=== PATIENT | male | born 1960 | race Caucasian/White ===

== ENCOUNTER 2021-05-06 17:10 | Inpatient (IN) | payer SELFPAY ==
[~2021-05-06] VITALS: Ht 175.3 cm; Wt 100.2 kg
--- NOTE | 2021-05-06 17:29 | PHYS DOC ---
General Adult EDM: Chief Complaint: BACK PAIN OR INJURY HPI: HPI: Patient is a 61-year-old male who presents to the emergency department today for altered mental status. EMS states that patient has been speaking in tongues and not answering questions appropriately, they report that patient at 1 point dur ing transport was able to tell him that his back hurt. Patient arrives he is yelling in on gibberish and he words are not comprehensible.Patient had a moment when he stated "bermudian" "pain" when asked where his pain was he stated "back". He is following commands and moving all four extermities but due to patients speech, unable to obtain an HPI. 1834: Patients significant other is at patient's bedside, she states that he behaves this way when he has muscle spasms. She also informed me that he has increased lower extremity swelling and he has liver disease but she is a poor historian. She says that patient recently had an appointment with his liver doctor. When I asked her about patient's necrotic toe she states that he does not see wound care for any of his wounds Review of Systems: Review of Systems: See HPI Heart Score: C/O Chest Pain: N/A Risk Factors: Risk Factors: DM, Current or recent (<one month) smoker, HTN, HLP, family history of CAD, obesity. Risk Scores: Score 0 - 3: 2.5% MACE over next 6 weeks - Discharge Home Score 4 - 6: 20.3% MACE over next 6 weeks - Admit for Clinical Observation Score 7 - 10: 72.7% MACE over next 6 weeks - Early Invasive Strategies Physical Exam: PE: Constitutional: Well developed, well nourished, no acute distress, non-toxic appearance. [] HENT: Normocephalic, atraumatic, bilateral external ears normal, oropharynx moist, no oral exudates, nose normal. [] Eyes: PERRL, 4 mm pupils bilaterally, EOMI, conjunctiva normal, no discharge. [] Neck: Normal range of motion, no bony spinal tenderness, supple, no stridor. [] Cardiovascular:Heart rate regular rhythm, no murmur [] Lungs & Thorax: Bilateral breath sounds clear to auscultation [] Abdomen: Bowel sounds normal, soft, no tenderness, no masses, no pulsatile masses. [] Skin: Warm, dry, no erythema, no rash [] Back: Lumbar paraspinal tenderness, decreased range of motion due to pain Extremities: No tenderness, no cyanosis, no clubbing, ROM intact, plus pitting edema noted to right lower extremity, 2+ edema noted to left lower extremity, redness noted to left foot starting foot and extending to toes, patient has scabbing noted to bilateral lower extremities, necrotic left second toe. Neurologic: Alert and oriented X 3, normal motor function, normal sensory function, no focal deficits noted, patient is moving all 4 extremities equally, no facial droop, patient has garbled speech and is acting like he is talking and tongue although he occasionally will respond appropriately to questions. [] Psychologic: Affect normal, judgement normal, mood normal. [] Current Patient Data: Labs: Laboratory Tests Test 05/06/21 17:25 05/06/21 18:00 White Blood Count 7.8 x10^3/uL Red Blood Count 4.53 x10^6/uL Hemoglobin 12.7 g/dL Hematocrit 37.6 % Mean Corpuscular Volume 83 fL Mean Corpuscular Hemoglobin 28 pg Mean Corpuscular Hemoglobin Concent 34 g/dL Red Cell Distribution Width 16.3 % Platelet Count 136 x10^3/uL Neutrophils (%) (Auto) 65 % Lymphocytes (%) (Auto) 22 % Monocytes (%) (Auto) 9 % Eosinophils (%) (Auto) 4 % Basophils (%) (Auto) 1 % Neutrophils # (Auto) 5.1 x10^3/uL Lymphocytes # (Auto) 1.7 x10^3/uL Monocytes # (Auto) 0.7 x10^3/uL Eosinophils # (Auto) 0.3 x10^3/uL Basophils # (Auto) 0.0 x10^3/uL Sodium Level 134 mmol/L Potassium Level 3.7 mmol/L Chloride Level 96 mmol/L Carbon Dioxide Level 29 mmol/L Anion Gap 9 Blood Urea Nitrogen 6 mg/dL Creatinine 1.0 mg/dL Estimated GFR (Cockcroft-Gault) 76.0 BUN/Creatinine Ratio 6 Glucose Level 77 mg/dL Lactic Acid Level 1.9 mmol/L Calcium Level 8.5 mg/dL Total Bilirubin 0.7 mg/dL Aspartate Amino Transf (AST/SGOT) 21 U/L Alanine Aminotransferase (ALT/SGPT) 21 U/L Alkaline Phosphatase 179 U/L Troponin I High Sensitivity 8 ng/L Total Protein 7.7 g/dL Albumin 3.3 g/dL Albumin/Globulin Ratio 0.8 Ethyl Alcohol Level < 10 mg/dL Ammonia 46 mcmol/L Current Medications Medications (Trade) Dose Ordered Sig/Nayla Route PRN Reason Start Time Stop Time Status Last Admin Dose Admin Ketorolac Tromethamine (Toradol 30mg Vial) 30 mg 1X ONCE IVP 05/06/21 18:00 05/06/21 18:01 DC 05/06/21 18:39 Orphenadrine Citrate (Norflex) 60 mg 1X ONCE IM 05/06/21 18:00 05/06/21 18:01 DC 05/06/21 18:39 EKG: EKG: [] EKG performed by ER staff at 1740 shows sinus rhythm rate of 94, QTC of 438, no STEMI read by Dr. Simpson at 1745 Radiology/Procedures: Radiology/Procedures: []REASON: back pain PROCEDURE: CT LUMBAR SPINE WO CONTRAST Exam: CT of lumbar spine without contrast INDICATION: Back pain TECHNIQUE: Sequential axial images through the lumbar spine obtained without IV contrast. Sagittal and coronal reformatted images were reconstructed from the axial data and reviewed. Exposure: One or more of the following in the visualized dose reduction techniques were utilized for this examination: 1. Automated exposure control 2. Adjustment of the MA and/or KV according to patient size 3. Use of iterative of reconstructive technique Comparisons: None FINDINGS: Mild compression fracture involving superior endplate of L4. Displaced fracture to the lumbar spine is not identified. Degenerative disc disease greatest at L1-L2. Mild bilateral facet arthropathy is also noted in the lumbar spine. Visualized paraspinal soft tissues are unremarkable. IMPRESSION: 1. Compression fracture of the superior endplate of L4. 2. Mild spondylotic change in the lumbar spine as described above. Electronically signed by: Cliff Dior MD (05/06/2021 7:18 PM) [facility] DICTATED and SIGNED BY: CLIFF DIOR MD DATE: 05/06/21 [id number] 0 PROCEDURE: CT HEAD AND CERVICAL SPINE WO Exam: CT head and cervical spine without contrast INDICATION: Altered mental status, back TECHNIQUE: Sequential axial images through the head were obtained without the administration of IV contrast. Exposure: One or more of the following in the visualized dose reduction techniques were utilized for this examination: 1. Automated exposure control 2. Adjustment of the MA and/or KV according to patient size 3. Use of iterative of reconstructive technique Comparisons: None FINDINGS: Head: No focal parenchymal lesion or hemorrhage is identified. There is no midline shift or sulcal effacement. No acute vascular territory infarction is identified. Solomon-white distinction is preserved. The ventricular system is within normal limits without compression hydrocephalus. The basal cisterns are well maintained. The visualized portions of the paranasal sinuses and mastoid air cells are well- pneumatized. No acute fractures. Cervical spine: Straightening of the cervical spine which may positional. Fracture to the cervical spine is not identified. Mild multilevel spondylotic change in cervical spine with degenerative disease greatest at C3-C4, C4-C5 and C5-C6. Visualized paraspinal soft tissues are unremarkable. IMPRESSION: 1. No acute intracranial abnormality. 2. Negative CT C-spine for acute traumatic injury. Electronically signed by: Cliff Dior MD (05/06/2021 7:14 PM) [facility] DICTATED and SIGNED BY: CLIFF DIOR MD DATE: 05/06/21 [id number] 0 Course & Med Decision Making: Course & Med Decision Making Pertinent Labs and Imaging studies reviewed. (See chart for details) [] Patient presents to the emergency department for altered mental status and major difficulties. Work-up in the ER consisted of blood work, CT imaging of head and neck and lumbar spine, chest x-ray, urinalysis. Patient CBC is u nremarkable. He is noted to have an ammonia of 46. Negative troponin, negative lactic acidosis. Patient ALT and AST is 21, he does have a history of liver disease but his speech is not well understood and his significant other in the room is a poor historian. CT scan of head and neck are unremarkable. CT scan of lumbar spine shows a compression fracture of L4. I spoke to Dr. Pak's nurse practitioner Cyndi and she agreed that she could see this patient at patient but would be willing to see him inpatient he gets admitted for other reasons. A consult was placed for wound care as patient does have a necrotic left second toe. Urine drug screen and urinalysis is pending at this time. I discussed patient's case with Dr. Porras and he agreed to admit the patient under his services. I discussed patient's findings with him and his significant other as well as treatment plan and they are agreeable at this time. Bridge orders placed as well as as needed pain medication. 2013. Thomas Disclaimer: Thomas Disclaimer: This electronic medical record was generated, in whole or in part, using a voice recognition dictation system. Departure Departure Impression: Primary Impression: Intractable back pain Additional Impression: Hyperammonemia Disposition: ADMITTED INPATIENT Admitting Physician: ISMAEL Condition: STABLE MAYRA ALLEN [employer] May 06, 2021 17:29
[2021-05-06 17:50] LABS: BASO % 1 % (0-3); EOS # 0.3 x10^3/uL (0.0-0.7); EOS % 4 % (0-3); HEMATOCRIT 37.6 % (39.0-53.0); HEMOGLOBIN 12.7 g/dL (13.0-17.5); LYMPH # 1.7 x10^3/uL (1.0-4.8); LYMPH % 22 % (24-48); MEAN CORPUSCULAR HEMOGLOBIN 28 pg (25-35); MEAN CORPUSCULAR HGB CONC 34 g/dL (31-37); MEAN CORPUSCULAR VOLUME 83 fL (79-100); MONO # 0.7 x10^3/uL (0.0-1.1); MONO % 9 % (0-9); NEUT # 5.1 x10^3/uL (1.8-7.7); NEUT % 65 % (31-73); PLATELET COUNT 136 x10^3/uL (140-400); RED BLOOD COUNT 4.53 x10^6/uL (4.30-5.70); RED CELL DISTRIBUTION WIDTH 16.3 % (11.5-14.5); WHITE BLOOD COUNT 7.8 x10^3/uL (4.0-11.0)
[2021-05-06 17:56] LABS: CALCIUM 8.5 mg/dL (8.5-10.1); POTASSIUM 3.7 mmol/L (3.5-5.1)
[2021-05-06] MEDS ORDERED: KETOROLAC 30 MG/ML VIAL. IVP ONE (18:00)
[2021-05-06] MEDS ORDERED: ORPHENADRINE CITRATE 60 MG/2 ML VIAL. IM ONE (18:00)
[2021-05-06 18:10] LABS: ALBUMIN 3.3 g/dL (3.4-5.0); ALBUMIN/GLOBULIN RATIO 0.8 (1.0-1.7); TOTAL BILIRUBIN 0.7 mg/dL (0.2-1.0); TOTAL PROTEIN 7.7 g/dL (6.4-8.2)
--- NOTE | 2021-05-06 18:11 | EKG ---
[facility] [address] [place] [address] Test Date: 2021-05-06 Test Time: 17:40:27 Pat Name: ROBYN PEREYRA Department: Room: Gender: M Rn Procedures: : 1960 Requested By: MAYRA ALLEN Order Number: [id number] Reading MD: Rodney Hogluin MD Measurements Intervals [place] Rate: 94 P: 51 IA: 160 QRS: 16 QRSD: 78 T: 28 QT: 346 QTc: 438 Interpretive Statements SINUS RHYTHM NON-SPECIFIC ST/T CHANGES Electronically Signed On 05-07-2021 13:24:57 [employer]AMINER by Rodney Holguin MD
--- NOTE | 2021-05-06 19:17 | RAD ---
Exam: CT head and cervical spine without contrast INDICATION: Altered mental status, back TECHNIQUE: Sequential axial images through the head were obtained without the administration of IV co ntrast. Exposure: One or more of the following in the visualized dose reduction techniques were utilized for this examination: 1. Automated exposure control 2. Adjustment of the MA and/or KV according to patient size 3. Use of iterative of reconstructive technique Comparisons: None FINDINGS: Head: No focal parenchymal lesion or hemorrhage is identified. There is no midline shift or sulcal effaceme nt. No acute vascular territory infarction is identified. Solomon-white distinction is preserved. The ventricular system is within normal limits without compression hydrocephalus. The basal cisterns are well maintained. The visualized portions of the paranasal sinuses and mastoid air cells are well-pneumatized. No acute fractures. Cervical spine: Straightening of the cervical spine which may positional. Fracture to the cervical spine is not identified. Mild multilevel spondylotic change in cervical spine with degenerative disease greatest at C3-C4, C4- C5 and C5-C6. Visualized paraspinal soft tissues are unremarkable. IMPRESSION: 1. No acute intracranial abnormality. 2. Negative CT C-spine for acute traumatic injury. Electronically signed by: Cliff Gibbs MD (05/06/2021 7:14 PM) [facility]
--- NOTE | 2021-05-06 19:21 | RAD ---
Exam: CT of lumbar spine without contrast INDICATION: Back pain TECHNIQUE: Sequential axial images through the lumbar spine obtained without IV contrast. Sagittal an d coronal reformatted images were reconstructed from the axial data and reviewed. Exposure: One or more of the following in the visualized dose reduction techniques were utilized for this examination: 1. Automated exposure control 2. Adjustment of the MA and/or KV according to patient size 3. Use of iterative of reconstructive technique Comparisons: None FINDINGS: Mild compression fracture involving superior endplate of L4. Displaced fracture to the lumbar spine is not identified. Degenerative disc disease greatest at L1-L2. Mild bilateral facet arthropathy is also noted in the lisa mbar spine. Visualized paraspinal soft tissues are unremarkable. IMPRESSION: 1. Compression fracture of the superior endplate of L4. 2. Mild spondylotic change in the lumbar spine as described above. Electronically signed by: Cliff Gibbs MD (05/06/2021 7:18 PM) [facility]
[2021-05-06] MEDS ORDERED: fentaNYL PF VIAL 100 MCG/2 ML VIAL IVP ONE (19:30)
--- NOTE | 2021-05-06 19:35 | RAD ---
Exam: Chest one view INDICATION: Altered mental status TECHNIQUE: Frontal view of the chest Comparisons: None FINDINGS: The cardiomediastinal silhouette and pulmonary vessels are within normal limits. The lung and pleural spaces are clear. IMPRESSION: No acute cardiopulmonary process. Electronically signed by: Cliff Gibbs MD (05/06/2021 7:32 PM) [facility]
[2021-05-06 19:59] LABS: BILIRUBIN,URINE NEGATIVE (NEG); CLARITY,URINE CLEAR; COLOR,URINE YELLOW; NITRITE,URINE NEGATIVE (NEG); PH,URINE 6.5 (<5.0-8.0); PROTEIN,URINE NEGATIVE (NEG-TRACE); UROBILINOGEN,URINE 0.2 mg/dL (0.2 mg/dL)
[2021-05-06 20:01] LABS: BACTERIA,URINE FEW /HPF (0-FEW)
[2021-05-06 20:02] LABS: BARBITURATES NEG (NEG); BENZODIAZEPINES NEG (NEG); CANNABINOIDS NEG (NEG); COCAINE NEG (NEG); HYALINE CASTS, URINE OCCASIONAL /HPF; METHADONE NEG (NEG); OPIATES NEG (NEG); PHENCYCLIDINE NEG (NEG)
[2021-05-06 20:03] LABS: AMPHETAMINE/METHAMPHETAMINE NEG (NEG); RBC,URINE 0 /HPF (0-2)
--- NOTE | 2021-05-06 20:06 | PDOC1 ---
History and Physical Date of Admission Date of Admission DATE: 05/06/21 TIME: 20:06 Identification/Chief Complaint Chief Complaint Back pain Source Source: Caregiver, Chart review History of Present Illness History of Present Illness Mr Gustafson is a 61-year-old male with PMHx alcoholic cirrhosis of the liver presents to the emergency department via EMS accompanied by his for confusion and back pain. EMS told ED staff patient has been "speaking in tongues" and not answering questions appropriately History is given by bedside and very normal air fashion. She notes patient has had back pain for the past 3 weeks and saw her primary care physician Dr. Schaffer had an x-ray and was told it was "normal". He then did a job where there was heavy lifting involved and since then his back pain is gotten worse his notes no falls and when asked if she is with him 16/01 she answers no but she knows he has not fallen. Patient is very unsteady on his feet. He is very disheveled with debridement and feces caked in multiple locations his notes he took a hot bath earlier today and this did not help his pain. When asked about the swelling in his left leg and ulcer on his toe patient's notes that he sees a liver doctor at [facility] and has been taking furosemide and that he stopped drinking over a year ago. When asked how long his left foot has been red she notes she did not notice that. Patient is unable to give any other history. Spouse notes that he gets most of his care at [facility] in the [facility] and she does not know much else about his history and tells me I should just look at his record. During examination he will frequently shout out "pain" and "back". He is following some commands and moving all four extermities but due to patients speech, unable to obtain an HPI. CT lumbar spine with L4 endplate fracture, CT neck with no acute findings degenerative joint disease C2-C5. Labs with WBC 7.8, Hb 12.7, platelets 136, NA 134, K3.7, BUN 6, CR 1, alkaline phosphatase 179, albumin 3.3, ammonia 46, high-sensitivity troponin 8, lactic acid 1.9, urine drug screen negative, UA bland Past Medical History Hepatobiliary: Cirrhosis Psych: Addictions Social History Smoke: No ALCOHOL: other (Quit) Drugs: None Current Medications Current Medications Current Medications Ketorolac Tromethamine (Toradol 30mg Vial) 30 mg 1X ONCE IVP Last administered on 05/06/21at 18:39; Start 05/06/21 at 18:00; Stop 05/06/21 at 18:01; Status DC Orphenadrine Citrate (Norflex) 60 mg 1X ONCE IM Last administered on 05/06/21at 18:39; Start 05/06/21 at 18:00; Stop 05/06/21 at 18:01; Status DC Fentanyl Citrate (Fentanyl 2ml Vial) 50 mcg 1X ONCE IVP ; Start 05/06/21 at 19:30; Stop 05/06/21 at 19:35; Status DC Allergies Allergies: Coded Allergies: No Known Drug Allergies (Unverified , 05/06/21) ROS Review of System 11 point ROS attempted, unable to obtain due to encephalopathy Physical Exam Physical Exam Back: Lumbar paraspinal tenderness, decreased range of motion due to pain Extremities: No tenderness, no cyanosis, no clubbing, ROM intact, plus pitting edema noted to right lower extremity, 2+ edema noted to left lower extremity, redness noted to left foot starting foot and extending to toes, patient has scabbing noted to bilateral lower extremities, necrotic left second toe. General: Alert, Cooperative, moderate distress HEENT: Atraumatic, PERRLA, EOMI, Mucous membr. moist/pink Lungs: Clear to auscultation, Normal air movement Heart: S1S2, RRR, no thrills, no rubs, no gallops, no murmurs Abdomen: Normal bowel sounds, Soft, No tenderness, No hepatosplenomegaly, No masses Extremities: No clubbing, No cyanosis, Normal pulses Skin: Other (left 2nd toe ulcer and redness, warmth to midfoot on left, swollen) Neuro: Strength at 5/5 X4 ext, Normal tone, Sensation intact, Cranial nerves 3- 12 NL, Reflexes 2+ Psych/Mental Status: Other (Obtunded) Vitals Vitals Vital Signs Date Time Temp Pulse Resp B/P (MAP) Pulse Ox O2 Delivery O2 Flow Rate FiO2 05/06/21 19:46 94 18 164/69 (100) 99 Room Air 05/06/21 17:19 98.3 98.3 Labs Labs Laboratory Tests Test 05/06/21 17:25 05/06/21 18:00 05/06/21 19:45 White Blood Count 7.8 x10^3/uL (4.0-11.0) Red Blood Count 4.53 x10^6/uL (4.30-5.70) Hemoglobin 12.7 g/dL (13.0-17.5) Hematocrit 37.6 % (39.0-53.0) Mean Corpuscular Volume 83 fL (79-100) Mean Corpuscular Hemoglobin 28 pg (25-35) Mean Corpuscular Hemoglobin Concent 34 g/dL (31-37) Red Cell Distribution Width 16.3 % (11.5-14.5) Platelet Count 136 x10^3/uL (140-400) Neutrophils (%) (Auto) 65 % (31-73) Lymphocytes (%) (Auto) 22 % (24-48) Monocytes (%) (Auto) 9 % (0-9) Eosinophils (%) (Auto) 4 % (0-3) Basophils (%) (Auto) 1 % (0-3) Neutrophils # (Auto) 5.1 x10^3/uL (1.8-7.7) Lymphocytes # (Auto) 1.7 x10^3/uL (1.0-4.8) Monocytes # (Auto) 0.7 x10^3/uL (0.0-1.1) Eosinophils # (Auto) 0.3 x10^3/uL (0.0-0.7) Basophils # (Auto) 0.0 x10^3/uL (0.0-0.2) Sodium Level 134 mmol/L (136-145) Potassium Level 3.7 mmol/L (3.5-5.1) Chloride Level 96 mmol/L (98-107) Carbon Dioxide Level 29 mmol/L (21-32) Anion Gap 9 (6-14) Blood Urea Nitrogen 6 mg/dL (8-26) Creatinine 1.0 mg/dL (0.7-1.3) Estimated GFR (Cockcroft-Gault) 76.0 BUN/Creatinine Ratio 6 (6-20) Glucose Level 77 mg/dL (70-99) Lactic Acid Level 1.9 mmol/L (0.4-2.0) Calcium Level 8.5 mg/dL (8.5-10.1) Total Bilirubin 0.7 mg/dL (0.2-1.0) Aspartate Amino Transf (AST/SGOT) 21 U/L (15-37) Alanine Aminotransferase (ALT/SGPT) 21 U/L (16-63) Alkaline Phosphatase 179 U/L (46-116) Troponin I High Sensitivity 8 ng/L (4-75) Total Protein 7.7 g/dL (6.4-8.2) Albumin 3.3 g/dL (3.4-5.0) Albumin/Globulin Ratio 0.8 (1.0-1.7) Ethyl Alcohol Level < 10 mg/dL (0-10) Ammonia 46 mcmol/L (11-34) Urine Collection Type Unknown Urine Color Yellow Urine Clarity Clear Urine pH 6.5 (<5.0-8.0) Urine Specific [place] <=1.005 (1.000-1.030) Urine Protein Negative mg/dL (NEG-TRACE) Urine Glucose (UA) Negative mg/dL (NEG) Urine Ketones (Stick) Negative mg/dL (NEG) Urine Blood Negative (NEG) Urine Nitrite Negative (NEG) Urine Bilirubin Negative (NEG) Urine Urobilinogen Dipstick 0.2 mg/dL (0.2 mg/dL) Urine Leukocyte Esterase Negative (NEG) Urine RBC 0 /HPF (0-2) Urine WBC 1-4 /HPF (0-4) Urine Squamous Epithelial Cells Occ /LPF Urine Bacteria Few /HPF (0-FEW) Urine Hyaline Casts Occasional /HPF Urine Mucus Slight /LPF Urine Opiates Screen Neg (NEG) Urine Methadone Screen Neg (NEG) Urine Barbiturates Neg (NEG) Urine Phencyclidine Screen Neg (NEG) Urine Amphetamine/Methamphetamine Neg (NEG) Urine Benzodiazepines Screen Neg (NEG) Urine Cocaine Screen Neg (NEG) Urine Cannabinoids Screen Neg (NEG) Urine Ethyl Alcohol Neg (NEG) Laboratory Tests Test 05/06/21 17:25 05/06/21 18:00 05/06/21 19:45 White Blood Count 7.8 x10^3/uL (4.0-11.0) Red Blood Count 4.53 x10^6/uL (4.30-5.70) Hemoglobin 12.7 g/dL (13.0-17.5) Hematocrit 37.6 % (39.0-53.0) Mean Corpuscular Volume 83 fL (79-100) Mean Corpuscular Hemoglobin 28 pg (25-35) Mean Corpuscular Hemoglobin Concent 34 g/dL (31-37) Red Cell Distribution Width 16.3 % (11.5-14.5) Platelet Count 136 x10^3/uL (140-400) Neutrophils (%) (Auto) 65 % (31-73) Lymphocytes (%) (Auto) 22 % (24-48) Monocytes (%) (Auto) 9 % (0-9) Eosinophils (%) (Auto) 4 % (0-3) Basophils (%) (Auto) 1 % (0-3) Neutrophils # (Auto) 5.1 x10^3/uL (1.8-7.7) Lymphocytes # (Auto) 1.7 x10^3/uL (1.0-4.8) Monocytes # (Auto) 0.7 x10^3/uL (0.0-1.1) Eosinophils # (Auto) 0.3 x10^3/uL (0.0-0.7) Basophils # (Auto) 0.0 x10^3/uL (0.0-0.2) Sodium Level 134 mmol/L (136-145) Potassium Level 3.7 mmol/L (3.5-5.1) Chloride Level 96 mmol/L (98-107) Carbon Dioxide Level 29 mmol/L (21-32) Anion Gap 9 (6-14) Blood Urea Nitrogen 6 mg/dL (8-26) Creatinine 1.0 mg/dL (0.7-1.3) Estimated GFR (Cockcroft-Gault) 76.0 BUN/Creatinine Ratio 6 (6-20) Glucose Level 77 mg/dL (70-99) Lactic Acid Level 1.9 mmol/L (0.4-2.0) Calcium Level 8.5 mg/dL (8.5-10.1) Total Bilirubin 0.7 mg/dL (0.2-1.0) Aspartate Amino Transf (AST/SGOT) 21 U/L (15-37) Alanine Aminotransferase (ALT/SGPT) 21 U/L (16-63) Alkaline Phosphatase 179 U/L (46-116) Troponin I High Sensitivity 8 ng/L (4-75) Total Protein 7.7 g/dL (6.4-8.2) Albumin 3.3 g/dL (3.4-5.0) Albumin/Globulin Ratio 0.8 (1.0-1.7) Ethyl Alcohol Level < 10 mg/dL (0-10) Ammonia 46 mcmol/L (11-34) Urine Collection Type Unknown Urine Color Yellow Urine Clarity Clear Urine pH 6.5 (<5.0-8.0) Urine Specific [place] <=1.005 (1.000-1.030) Urine Protein Negative mg/dL (NEG-TRACE) Urine Glucose (UA) Negative mg/dL (NEG) Urine Ketones (Stick) Negative mg/dL (NEG) Urine Blood Negative (NEG) Urine Nitrite Negative (NEG) Urine Bilirubin Negative (NEG) Urine Urobilinogen Dipstick 0.2 mg/dL (0.2 mg/dL) Urine Leukocyte Esterase Negative (NEG) Urine RBC 0 /HPF (0-2) Urine WBC 1-4 /HPF (0-4) Urine Squamous Epithelial Cells Occ /LPF Urine Bacteria Few /HPF (0-FEW) Urine Hyaline Casts Occasional /HPF Urine Mucus Slight /LPF Urine Opiates Screen Neg (NEG) Urine Methadone Screen Neg (NEG) Urine Barbiturates Neg (NEG) Urine Phencyclidine Screen Neg (NEG) Urine Amphetamine/Methamphetamine Neg (NEG) Urine Benzodiazepines Screen Neg (NEG) Urine Cocaine Screen Neg (NEG) Urine Cannabinoids Screen Neg (NEG) Urine Ethyl Alcohol Neg (NEG) Images Images CT of lumbar spine without contrast FINDINGS: Mild compression fracture involving superior endplate of L4. Displaced fracture to the lumbar spine is not identified. Degenerative disc disease greatest at L1-L2. Mild bilateral facet arthropathy is also noted in the lumbar spine. Visualized paraspinal soft tissues are unremarkable. IMPRESSION: 1. Compression fracture of the superior endplate of L4. 2. Mild spondylotic change in the lumbar spine as described above. Electronically signed by: Cliff Dior MD (05/06/2021 7:18 PM) [facility] DICTATED and SIGNED BY: CLIFF DIOR MD DATE: 05/06/21 [id number] PROCEDURE: CT HEAD AND CERVICAL SPINE WO Exam: CT head and cervical spine without contrast INDICATION: Altered mental status, back TECHNIQUE: Sequential axial images through the head were obtained without the administration of IV contrast. Exposure: One or more of the following in the visualized dose reduction techniques were utilized for this examination: 1. Automated exposure control 2. Adjustment of the MA and/or KV according to patient size 3. Use of iterative of reconstructive technique Comparisons: None FINDINGS: Head: No focal parenchymal lesion or hemorrhage is identified. There is no midline shift or sulcal effacement. No acute vascular territory infarction is identified. Solomon-white distinction is preserved. The ventricular system is within normal limits without compression hydrocephalus. The basal cisterns are well maintained. The visualized portions of the paranasal sinuses and mastoid air cells are well- pneumatized. No acute fractures. Cervical spine: Straightening of the cervical spine which may positional. Fracture to the cervical spine is not identified. Mild multilevel spondylotic change in cervical spine with degenerative disease greatest at C3-C4, C4-C5 and C5-C6. Visualized paraspinal soft tissues are unremarkable. IMPRESSION: 1. No acute intracranial abnormality. 2. Negative CT C-spine for acute traumatic injury. Electronically signed by: Cliff Dior MD (05/06/2021 7:14 PM) [facility] DICTATED and SIGNED BY: CLIFF DIOR MD DATE: 05/06/21 [id number] Course & Med Decision Making: Course & Med Decision Making Pertinent Labs and Imaging studies reviewed. (See chart for details) [] Patient presents to the emergency department for altered mental status and major difficulties. Work-up in the ER consisted of blood work, CT imaging of head and neck and lumbar spine, chest x-ray, urinalysis. Patient CBC is unremarkable. He is noted to have an ammonia of 46. Negative troponin, negative lactic acidosis. Patient ALT and AST is 21, he does have a history of liver disease but his speech is not well understood and his significant other in the room is a poor historian. CT scan of head and neck are unremarkable. CT scan of lumbar spine shows a compression fracture of L4. I spoke to Dr. Pak's nurse practitioner Cyndi and she agreed that she could see this patient at patient but would be willing to see him inpatient he gets admitted for other reasons. A consult was placed for wound care as patient does have a necrotic left second toe. Urine drug screen and urinalysis is pending at this time. I discussed patient's case with Dr. Porras and he agreed to admit the patient under his services. I discussed patient's findings with him and his significant other as well as treatment plan and they are agreeable at this time. Bridge orders placed as well as as needed pain medication. 2013. Thomas Disclaimer: Thomas Disclaimer: This electronic medical record was generated, in whole or in part, using a voice recognition dictation system. VTE Prophylaxis Ordered VTE Prophylaxis Devices: No VTE Pharmacological Prophylaxi: Yes Assessment/Plan Assessment/Plan A/P: Acute encephalopathy - likely decompensated alcoholic cirrhosis Alcoholic cirrhosis of the liver - states he sees Dr. Nallely Geller at [facility] for his liver disease, takes diuretics, had a recent outpatient visit. Has been stable and sober per Intractable back pain - likely due to L4 compression fracture. No noted fall, but patient and his significant other are not reliable historians L4 fracture - uncertain acuity, but seems this happened within the past 3 weeks. Right hip pain - good ROM Left foot cellulitis - iv rocephin and doxy Left 2nd toe ulcer - likely source of infection, antibiotics, wound care Thrombocytopenia - likely related to liver disease, will monitor FEN - NPO PPX - lovenox FULL CODE Dispo - inpatient Justifications for Admission Other Justification ELISE WELLINGTON MD May 06, 2021 20:06
[2021-05-06] MEDS ORDERED: LIDOCAINE (700MG/PATCH) PATCH. TD ONE (21:15)
[2021-05-06] MEDS ORDERED: traMADol 50 MG TABLET PO PRN (21:15)
--- NOTE | 2021-05-06 22:10 | NUR ---
Received patient from ER to room 412 per cart. Admitting diagnosis: intractable back pain, necrotic 2nd toe left foot and hyperammonemia. Patient stated he was lifting some furniture yesterday and today he stated have back pain with spasms. Patient is alert and oriented x4. Patient's speech is clear now. Ct Scan of Lumbar Spine showed L4 fracture and a L1-L2 compression fracture. Patient lives with his . Patient has NKA. Patient has a necrotic area on his 2nd toe on his left foot. Wound is dry and open to air. Patient states he is being treated fro liver disease and has had several paracentesis done to drain fluid off of abdomen. Patient states he normally goes to [facility] for medical treatment but the ambulance brought him here this time. Patient also 20 + scabbed areas all over his body. Patient stated the scabs are a constant problem. Patient c/o pain in his back with movement. Pain is not as intense when he is lying still. IR consulted for possible intervention. Will continue to monitor.
[2021-05-06 22:25] VITALS: BP 142/63
[2021-05-06] MEDS: fentaNYL PF VIAL 100 MCG/2 ML VIAL IV PRN (23:08)
[2021-05-06] MEDS: LACTULOSE 20 GM/30 ML SOLUTION. PO SCH (23:10)
[2021-05-07] MEDS: DOXYCYCLINE HYCLATE 100 MG in IV DEXTROSE 5% 100ML 100 ML IV SCH ×3 (00:09→21:14)
[2021-05-07] MEDS: cefTRIAXone IV Push 1 GM VIAL. IVP SCH ×2 (02:55→21:12)
[2021-05-07 03:00] VITALS: BP 139/78
[2021-05-07] MEDS: fentaNYL PF VIAL 100 MCG/2 ML VIAL IV PRN ×5 (03:04→17:34)
[2021-05-07] MEDS ORDERED: ROPI3TAB4 PO (03:39)
[2021-05-07] MEDS ORDERED: SPIR50TA4 PO (03:39)
[2021-05-07] MEDS ORDERED: MELO15TA23 PO (03:39)
[2021-05-07] MEDS ORDERED: DULO60CA7 PO (03:39)
[2021-05-07] MEDS ORDERED: POTA10TA12 PO (03:39)
[2021-05-07] MEDS ORDERED: RIFA550T4 PO (03:39)
[2021-05-07] MEDS ORDERED: TRAM50TA PO (03:39)
[2021-05-07] MEDS ORDERED: MAGN200T7 PO (03:39)
[2021-05-07] MEDS ORDERED: GABA300C18 PO (03:39)
[2021-05-07] MEDS ORDERED: FURO-69 PO ×2 (03:39)
[2021-05-07 07:00] VITALS: BP 133/81
[2021-05-07 07:16] LABS: BASO % 1 % (0-3); EOS # 0.2 x10^3/uL (0.0-0.7); EOS % 4 % (0-3); HEMATOCRIT 36.3 % (39.0-53.0); HEMOGLOBIN 11.9 g/dL (13.0-17.5); LYMPH # 1.6 x10^3/uL (1.0-4.8); LYMPH % 37 % (24-48); MEAN CORPUSCULAR HEMOGLOBIN 28 pg (25-35); MEAN CORPUSCULAR HGB CONC 33 g/dL (31-37); MEAN CORPUSCULAR VOLUME 84 fL (79-100); MONO # 0.4 x10^3/uL (0.0-1.1); MONO % 9 % (0-9); NEUT # 2.1 x10^3/uL (1.8-7.7); NEUT % 49 % (31-73); PLATELET COUNT 112 x10^3/uL (140-400); RED BLOOD COUNT 4.32 x10^6/uL (4.30-5.70); RED CELL DISTRIBUTION WIDTH 16.1 % (11.5-14.5); WHITE BLOOD COUNT 4.2 x10^3/uL (4.0-11.0)
[2021-05-07 07:24] LABS: PROTHROMBIN TIME PATIENT 13.4 SEC (11.7-14.0)
--- NOTE | 2021-05-07 07:40 | PDOC ---
Provider Note Date of Service: DATE: 05/07/21 TIME: 07:36 Provider Note [address] reviewed : age indeterminate L4 compression fracture involving superior endplate. Will order MRI to assess acuity. Mild thrombocytopenia also noted. Given unsure mechanism of injury, would recommend outpatient assessment of bone mineral density in this relatively young male patient with a compression fracture. Justifications for Admission Other Justification ADRIAN CALHOUN MD May 07, 2021 07:40
[2021-05-07 07:45] LABS: ALBUMIN 2.7 g/dL (3.4-5.0); ALBUMIN/GLOBULIN RATIO 0.7 (1.0-1.7); CALCIUM 8.2 mg/dL (8.5-10.1); TOTAL BILIRUBIN 0.4 mg/dL (0.2-1.0); TOTAL PROTEIN 6.8 g/dL (6.4-8.2)
[2021-05-07 08:01] LABS: POTASSIUM 2.9 mmol/L (3.5-5.1)
--- NOTE | 2021-05-07 08:22 | PDOC ---
[employer] PROGRESS NOTE Date of Service DOS: DATE: 05/07/21 TIME: 08:21 Chief Complaint Chief Complaint A/P: Acute encephalopathy - likely decompensated alcoholic cirrhosis Alcoholic cirrhosis of the liver - states he sees Dr. Nallely Geller at [facility] for his liver disease, takes diuretics, had a recent outpatient visit. Has been stable and sober per Intractable back pain - likely due to L4 compression fracture. No noted fall, but patient and his significant other are not reliable historians L4 fracture - uncertain acuity, but seems this happened within the past 3 weeks. Right hip pain - good ROM Left foot cellulitis - iv rocephin and doxy Left 2nd toe ulcer - likely source of infection, antibiotics, wound care Thrombocytopenia - likely related to liver disease, will monitor FEN - NPO PPX - lovenox FULL CODE Dispo - inpatient History of Present Illness History of Present Illness Mr Gustafson is a 61-year-old male with PMHx alcoholic cirrhosis of the liver presents to the emergency department via EMS accompanied by his for confusion and back pain. EMS told ED staff patient has been "speaking in tongues" and not answering questions appropriately History is given by bedside and very normal air fashion. She notes patient has had back pain for the past 3 weeks and saw her primary care physician Dr. Schaffer had an x-ray and was told it was "normal". He then did a job where there was heavy lifting involved and since then his back pain is gotten worse his notes no falls and when asked if she is with him 24/ she answers no but she knows he has not fallen. Patient is very unsteady on his feet. He is very disheveled with debridement and feces caked in multiple locations his notes he took a hot bath earlier today and this did not help his pain. When ask ed about the swelling in his left leg and ulcer on his toe patient's notes that he sees a liver doctor at [facility] and has been taking furosemide and that he stopped drinking over a year ago. When asked how long his left foot has been red she notes she did not notice that. Patient is unable to give any other history. Spouse notes that he gets most of his care at [facility] in the [facility] and she does not know much else about his history and tells me I should just look at his record. During examination he will frequently shout out "pain" and "back". He is following some commands and moving all four extermities but due to patients speech, unable to obtain an HPI. CT lumbar spine with L4 endplate fracture, CT neck with no acute findings degenerative joint disease C2-C5. Labs with WBC 7.8, Hb 12.7, platelets 136, NA 134, K3.7, BUN 6, CR 1, alkaline phosphatase 179, albumin 3.3, ammonia 46, high-sensitivity troponin 8, lactic acid 1.9, urine drug screen negative, UA bland K down to 2.9 Albumin 2.7 Hb 11.9 platelets 112. Mental status and pain improved slightly today. MRI per IR. Vitals/I&O Vitals/I&O: Vital Signs Date Time Temp Pulse Resp B/P (MAP) Pulse Ox O2 Delivery O2 Flow Rate FiO2 05/07/21 08:19 Room Air 05/07/21 07:02 20 05/07/21 07:00 97.7 78 133/81 (98) 96 97.7 I & O 05/06/21 05/06/21 05/07/21 14:59 22:59 06:59 Intake Total 200 ml Output Total 375 ml Balance -175 ml Physical Exam General: Alert, Cooperative, moderate distress Abdomen: Normal bowel sounds, Soft, No tenderness, No hepatosplenomegaly, No masses Extremities: No clubbing, No cyanosis, Normal pulses Skin: Other (left 2nd toe ulcer and redness, warmth to midfoot on left, swollen) Labs Labs: Laboratory Tests Test 05/06/21 17:25 05/06/21 18:00 05/06/21 19:45 05/07/21 00:30 White Blood Count 7.8 x10^3/uL (4.0-11.0) Red Blood Count 4.53 x10^6/uL (4.30-5.70) Hemoglobin 12.7 g/dL (13.0-17.5) Hematocrit 37.6 % (39.0-53.0) Mean Corpuscular Volume 83 fL (79-100) Mean Corpuscular Hemoglobin 28 pg (25-35) Mean Corpuscular Hemoglobin Concent 34 g/dL (31-37) Red Cell Distribution Width 16.3 % (11.5-14.5) Platelet Count 136 x10^3/uL (140-400) Neutrophils (%) (Auto) 65 % (31-73) Lymphocytes (%) (Auto) 22 % (24-48) Monocytes (%) (Auto) 9 % (0-9) Eosinophils (%) (Auto) 4 % (0-3) Basophils (%) (Auto) 1 % (0-3) Neutrophils # (Auto) 5.1 x10^3/uL (1.8-7.7) Lymphocytes # (Auto) 1.7 x10^3/uL (1.0-4.8) Monocytes # (Auto) 0.7 x10^3/uL (0.0-1.1) Eosinophils # (Auto) 0.3 x10^3/uL (0.0-0.7) Basophils # (Auto) 0.0 x10^3/uL (0.0-0.2) Sodium Level 134 mmol/L (136-145) Potassium Level 3.7 mmol/L (3.5-5.1) Chloride Level 96 mmol/L (98-107) Carbon Dioxide Level 29 mmol/L (21-32) Anion Gap 9 (6-14) Blood Urea Nitrogen 6 mg/dL (8-26) Creatinine 1.0 mg/dL (0.7-1.3) Estimated GFR (Cockcroft-Gault) 76.0 BUN/Creatinine Ratio 6 (6-20) Glucose Level 77 mg/dL (70-99) Lactic Acid Level 1.9 mmol/L (0.4-2.0) Calcium Level 8.5 mg/dL (8.5-10.1) Total Bilirubin 0.7 mg/dL (0.2-1.0) Aspartate Amino Transf (AST/SGOT) 21 U/L (15-37) Alanine Aminotransferase (ALT/SGPT) 21 U/L (16-63) Alkaline Phosphatase 179 U/L (46-116) Troponin I High Sensitivity 8 ng/L (4-75) Total Protein 7.7 g/dL (6.4-8.2) Albumin 3.3 g/dL (3.4-5.0) Albumin/Globulin Ratio 0.8 (1.0-1.7) Ethyl Alcohol Level < 10 mg/dL (0-10) Ammonia 46 mcmol/L (11-34) Urine Collection Type Unknown Urine Color Yellow Urine Clarity Clear Urine pH 6.5 (<5.0-8.0) Urine Specific [place] <=1.005 (1.000-1.030) Urine Protein Negative mg/dL (NEG-TRACE) Urine Glucose (UA) Negative mg/dL (NEG) Urine Ketones (Stick) Negative mg/dL (NEG) Urine Blood Negative (NEG) Urine Nitrite Negative (NEG) Urine Bilirubin Negative (NEG) Urine Urobilinogen Dipstick 0.2 mg/dL (0.2 mg/dL) Urine Leukocyte Esterase Negative (NEG) Urine RBC 0 /HPF (0-2) Urine WBC 1-4 /HPF (0-4) Urine Squamous Epithelial Cells Occ /LPF Urine Bacteria Few /HPF (0-FEW) Urine Hyaline Casts Occasional /HPF Urine Mucus Slight /LPF Urine Opiates Screen Neg (NEG) Urine Methadone Screen Neg (NEG) Urine Barbiturates Neg (NEG) Urine Phencyclidine Screen Neg (NEG) Urine Amphetamine/Methamphetamine Neg (NEG) Urine Benzodiazepines Screen Neg (NEG) Urine Cocaine Screen Neg (NEG) Urine Cannabinoids Screen Neg (NEG) Urine Ethyl Alcohol Neg (NEG) SARS-CoV-2 Antigen (Rapid) Negative (NEGATIVE) Test 05/07/21 06:10 White Blood Count 4.2 x10^3/uL (4.0-11.0) Red Blood Count 4.32 x10^6/uL (4.30-5.70) Hemoglobin 11.9 g/dL (13.0-17.5) Hematocrit 36.3 % (39.0-53.0) Mean Corpuscular Volume 84 fL (79-100) Mean Corpuscular Hemoglobin 28 pg (25-35) Mean Corpuscular Hemoglobin Concent 33 g/dL (31-37) Red Cell Distribution Width 16.1 % (11.5-14.5) Platelet Count 112 x10^3/uL (140-400) Neutrophils (%) (Auto) 49 % (31-73) Lymphocytes (%) (Auto) 37 % (24-48) Monocytes (%) (Auto) 9 % (0-9) Eosinophils (%) (Auto) 4 % (0-3) Basophils (%) (Auto) 1 % (0-3) Neutrophils # (Auto) 2.1 x10^3/uL (1.8-7.7) Lymphocytes # (Auto) 1.6 x10^3/uL (1.0-4.8) Monocytes # (Auto) 0.4 x10^3/uL (0.0-1.1) Eosinophils # (Auto) 0.2 x10^3/uL (0.0-0.7) Basophils # (Auto) 0.0 x10^3/uL (0.0-0.2) Prothrombin Time 13.4 SEC (11.7-14.0) Prothromb Time International Ratio 1.0 (0.8-1.1) Sodium Level 137 mmol/L (136-145) Potassium Level 2.9 mmol/L (3.5-5.1) Chloride Level 101 mmol/L (98-107) Carbon Dioxide Level 30 mmol/L (21-32) Anion Gap 6 (6-14) Blood Urea Nitrogen 7 mg/dL (8-26) Creatinine 1.0 mg/dL (0.7-1.3) Estimated GFR (Cockcroft-Gault) 76.0 BUN/Creatinine Ratio 7 (6-20) Glucose Level 88 mg/dL (70-99) Calcium Level 8.2 mg/dL (8.5-10.1) Total Bilirubin 0.4 mg/dL (0.2-1.0) Aspartate Amino Transf (AST/SGOT) 19 U/L (15-37) Alanine Aminotransferase (ALT/SGPT) 20 U/L (16-63) Alkaline Phosphatase 154 U/L (46-116) Total Protein 6.8 g/dL (6.4-8.2) Albumin 2.7 g/dL (3.4-5.0) Albumin/Globulin Ratio 0.7 (1.0-1.7) Comment Review of Relevant I have reviewed the following items marita (where applicable) has been applied. Medications: Current Medications Medications (Trade) Dose Ordered Sig/Nayla Route PRN Reason Start Time Stop Time Status Last Admin Dose Admin Ketorolac Tromethamine (Toradol 30mg Vial) 30 mg 1X ONCE IVP 05/06/21 18:00 05/06/21 18:01 DC 05/06/21 18:39 Orphenadrine Citrate (Norflex) 60 mg 1X ONCE IM 05/06/21 18:00 05/06/21 18:01 DC 05/06/21 18:39 Fentanyl Citrate (Fentanyl 2ml Vial) 50 mcg 1X ONCE IVP 05/06/21 19:30 05/06/21 19:35 DC 05/06/21 20:10 Lactulose (Lactulose) 20 gm DAILY PO 05/06/21 20:30 05/06/21 23:10 Fentanyl Citrate (Fentanyl 2ml Vial) 50 mcg Q2HR PRN IV PAIN GREATER THAN 09/0205/06/21 20:15 05/07/21 20:14 05/07/21 06:32 Lidocaine (Lidoderm) 1 patch 1X ONCE TD 05/06/21 21:15 05/06/21 21:17 DC 05/06/21 23:11 Ceftriaxone Sodium (Rocephin) 1 gm QHS IVP 05/06/21 21:30 05/07/21 02:55 Doxycycline Hyclate 100 mg/ Dextrose 100 ml @ 50 mls/hr Q12HR IV 05/06/21 22:00 05/07/21 00:09 Justifications for Admission Other Justification ELISE WELLINGTON MD May 07, 2021 08:22
[2021-05-07] MEDS: POTASSIUM CHLORIDE 10MEQ 100 ML IV SCH ×3 (09:00→11:37)
[2021-05-07] MEDS ORDERED: POTASSIUM CHLORIDE 20 MEQ TABLET.ER. PO ONE (09:00)
[2021-05-07] MEDS: LACTULOSE 20 GM/30 ML SOLUTION. PO SCH (10:03)
[2021-05-07] MEDS: FUROSEMIDE 20 MG TABLET PO SCH (10:03)
[2021-05-07] MEDS: THIAMINE 100 MG TABLET. PO SCH (10:04)
[2021-05-07] MEDS: SPIRONOLACTONE 25 MG TABLET PO SCH (10:04)
[2021-05-07] MEDS: FOLIC ACID 1 MG TABLET. PO SCH (10:04)
--- NOTE | 2021-05-07 10:05 | NUR ---
SW following. Discussed with RN, pt from home, room air, cardiac diet, rapid COVID-19 negative. Wound care and Dr. Souza following. MRI planned for today. Med Assist following for self pay status. SW will continue to follow.
[2021-05-07] MEDS ORDERED: MAGNESIUM SULFATE 1GM 100 ML IV ONE (11:00)
[2021-05-07] MEDS: KETOROLAC 30 MG/ML VIAL. IVP PRN (11:37)
[2021-05-07 15:00] VITALS: BP 136/74
--- NOTE | 2021-05-07 15:24 | RAD ---
Exam: MR Lumbar Spine without contrast CLINICAL INDICATION: L4 compression fracture. Acuity? COMPARISON: CT 05/06/2021 TECHNIQUE: Multiplanar, multisequence MR imaging of the lumbar spine was performed without IV contras t. FINDINGS: There is trace height loss of the L4 vertebral body. No associated edema or associated T1 fracture li ne. This likely represents a chronic fracture. Other vertebral bodies are preserved. A few T1/T2 hype rintense foci consistent with hemangiomas. Moderate to severe L1-2 and L5-S1 disc height loss. Mild disc height loss at L2-3, L3-4. Multilevel d isc desiccation. No spondylolisthesis. Mild lumbar spine curvature in the coronal plane better assessed on CT. Straigh tening of the normal lumbar lordosis. The conus medullaris is normal in morphology and terminates at L1-L2. At L1-L2: Generalized disc bulge results in mild flattening narrowing of the thecal sac. Superimpose d right foraminal disc protrusion results in moderate to severe right neural foraminal narrowing. Mil d left neural foraminal narrowing. At L2-L3: Prominent epidural fat with ligamentum flavum hypertrophy and facet degenerative change a s well as generalized disc bulge results in mild thecal sac deformity and mild neural foraminal narro wing bilaterally. At L3-L4: Generalized disc bulge with ligamentum flavum hypertrophy and facet degenerative changes w ith prominent epidural fat results in moderate thecal sac narrowing, measuring 8 mm in AP dimension w ith mild inferior neural foraminal narrowing bilaterally. At L4-L5: Trace generalized disc bulge with ligamentum flavum hypertrophy and facet degenerative yao nges result in mild thecal sac narrowing and trace inferior neural foraminal narrowing. At L5-S1: Generalized disc bulge, eccentric to the right with ligamentum flavum hypertrophy and fac et degenerative changes result in moderate to severe left and mild right neural foraminal narrowing. Right interpolar renal cyst. IMPRESSION: 1. Trace L4 vertebral body height loss without associated edema consistent with old/chronic compress ion fracture. No evidence for acute lumbar spine fracture. 2. Multilevel degenerative changes of the lumbar spine as described in detail above, most prominent at L2-3 and L3-4 with component of epidural lipomatosis. Electronically signed by: Everardo Lamb MD (05/07/2021 3:21 PM) [email or web address]
--- NOTE | 2021-05-07 15:54 | RAD ---
EXAM: AP pelvis, AP and lateral views right hip DATE: 05/07/2021 11:19 AM INDICATION: Reason: Right hip pain, spinal fracture / Spl. Instructions: / History: . COMPARISON: No Prior FINDINGS/ IMPRESSION: Mild collapse of the femoral heads bilaterally likely from osteonecrosis. This can be further assesse d by CT or MRI if clinically indicated. No definite acute fracture or dislocation. Electronically signed by: Everardo Lamb MD (05/07/2021 3:52 PM) [email or web address]
--- NOTE | 2021-05-07 17:21 | NUR ---
Wound/Ostomy Care Wound Type/Assessment: Patient seen per wound care consult. See wound assessment. Patient has an unstageable pressure ulcer to the left 2nd toe caused from having a "hammer toe." patient stated he has been dealing with this for quite some time and would like to just have the toe removed. Wound cleansed and assessed. Treatment Recommendations/Plan: Recommendations for Iodoflex (remove white mesh) and cover with bandaid. Change every 2-3 days. Education provided: Patient educated regarding wound care and PU prevention. Offloading surface/device: Patient to minimize pressure to left 2nd toe. Recommended Referrals/Tests: N/A Discharge Recommendations for dressings: Dressing change instructions left in room as well as extra Iodoflex. No other wounds noted. Wound care will check the chart on Monday and if no changes will follow up on 05/14/20.
[2021-05-07 19:00] VITALS: BP 142/83
[2021-05-07] MEDS: LACTOBACILLUS RHAMNOSUS GG 1 CAPSULE. PO SCH (21:12)
[2021-05-07 23:00] VITALS: BP 150/86
[2021-05-08] MEDS: fentaNYL PF VIAL 100 MCG/2 ML VIAL IVP PRN ×2 (01:06→08:09)
[2021-05-08 02:50] VITALS: BP 131/80
[2021-05-08] MEDS: KETOROLAC 30 MG/ML VIAL. IVP PRN ×3 (04:03→22:26)
[2021-05-08 07:00] VITALS: BP 143/89
[2021-05-08] MEDS: FOLIC ACID 1 MG TABLET. PO SCH (08:02)
[2021-05-08] MEDS: FUROSEMIDE 20 MG TABLET PO SCH (08:03)
[2021-05-08] MEDS: LACTULOSE 20 GM/30 ML SOLUTION. PO SCH (08:03)
[2021-05-08] MEDS: LACTOBACILLUS RHAMNOSUS GG 1 CAPSULE. PO SCH ×2 (08:03→22:06)
[2021-05-08] MEDS: THIAMINE 100 MG TABLET. PO SCH (08:03)
[2021-05-08] MEDS: SPIRONOLACTONE 25 MG TABLET PO SCH (08:03)
[2021-05-08] MEDS: DOXYCYCLINE HYCLATE 100 MG in IV DEXTROSE 5% 100ML 100 ML IV SCH ×2 (08:14→22:00)
[2021-05-08 10:22] LABS: CALCIUM 8.7 mg/dL (8.5-10.1); CREATININE 1.1 mg/dL (0.7-1.3); GFR 68.1; POTASSIUM 3.9 mmol/L (3.5-5.1)
[2021-05-08 11:00] VITALS: BP_SYST 120; BP_SYST 134; BP_DIAS 47
--- NOTE | 2021-05-08 11:54 | PDOC ---
[employer] PROGRESS NOTE Date of Service DOS: DATE: 05/08/21 TIME: 11:53 Chief Complaint Chief Complaint A/P: Acute encephalopathy - likely decompensated alcoholic cirrhosis Alcoholic cirrhosis of the liver - states he sees Dr. Nallely Geller at [facility] for his liver disease, takes diuretics, had a recent outpatient visit. Has been stable and sober per Intractable back pain - likely due to L4 compression fracture. No noted fall, but patient and his significant other are not reliable historians L4 fracture - uncertain acuity, but seems this happened within the past 3 weeks. Right hip pain - good ROM Left foot cellulitis - iv rocephin and doxy Left 2nd toe ulcer - likely source of infection, antibiotics, wound care Thrombocytopenia - likely related to liver disease, will monitor FEN - NPO PPX - lovenox FULL CODE Dispo - inpatient History of Present Illness History of Present Illness Mr Gustafson is a 61-year-old male with PMHx alcoholic cirrhosis of the liver presents to the emergency department via EMS accompanied by his for confusion and back pain. EMS told ED staff patient has been "speaking in tongues" and not answering questions appropriately History is given by bedside and very normal air fashion. She notes patient has had back pain for the past 3 weeks and saw her primary care physician Dr. Schaffer had an x-ray and was told it was "normal". He then did a job where there was heavy lifting involved and since then his back pain is gotten worse his notes no falls and when asked if she is with him 24/7 she answers no but she knows he has not fallen. Patient is very unsteady on his feet. He is very disheveled with debridement and feces caked in multiple locations his notes he took a hot bath earlier today and this did not help his pain. When ask ed about the swelling in his left leg and ulcer on his toe patient's notes that he sees a liver doctor at [facility] and has been taking furosemide and that he stopped drinking over a year ago. When asked how long his left foot has been red she notes she did not notice that. Patient is unable to give any other history. Spouse notes that he gets most of his care at [facility] in the [facility] and she does not know much else about his history and tells me I should just look at his record. During examination he will frequently shout out "pain" and "back". He is following some commands and moving all four extermities but due to patients speech, unable to obtain an HPI. CT lumbar spine with L4 endplate fracture, CT neck with no acute findings degenerative joint disease C2-C5. Labs with WBC 7.8, Hb 12.7, platelets 136, NA 134, K3.7, BUN 6, CR 1, alkaline phosphatase 179, albumin 3.3, ammonia 46, high-sensitivity troponin 8, lactic acid 1.9, urine drug screen negative, UA bland K down to 2.9 Albumin 2.7 Hb 11.9 platelets 112. Mental status and pain improved slightly today. MRI per IR. 05/08/2021 No acute events overnight. Patient seen and examined bedside. Redness and pain has improved. Continue with IV antibiotics for 1 more day and transition to p.o. antibiotics tomorrow. Patient will need close follow-up with wound care clinic and podiatry for left second digit hammertoe. Vitals/I&O Vitals/I&O: Vital Signs Date Time Temp Pulse Resp B/P (MAP) Pulse Ox O2 Delivery O2 Flow Rate FiO2 05/08/21 11:00 98.3 73 16 120/47 (71) 98 Room Air 98.3 I & O 05/07/21 05/07/21 05/08/21 15:00 23:00 07:00 Intake Total 240 ml 320 ml 1000 ml Output Total 150 ml Balance 240 ml 320 ml 850 ml Physical Exam General: Alert, Cooperative, moderate distress Abdomen: Normal bowel sounds, Soft, No tenderness, No hepatosplenomegaly, No masses Extremities: No clubbing, No cyanosis, Normal pulses Skin: Other (left 2nd toe ulcer and redness, warmth to midfoot on left, swollen) Labs Labs: Laboratory Tests Test 05/08/21 10:00 Sodium Level 138 mmol/L (136-145) Potassium Level 3.9 mmol/L (3.5-5.1) Chloride Level 101 mmol/L (98-107) Carbon Dioxide Level 30 mmol/L (21-32) Anion Gap 7 (6-14) Blood Urea Nitrogen 9 mg/dL (8-26) Creatinine 1.1 mg/dL (0.7-1.3) Estimated GFR (Cockcroft-Gault) 68.1 Glucose Level 123 mg/dL (70-99) Calcium Level 8.7 mg/dL (8.5-10.1) Magnesium Level 2.0 mg/dL (1.8-2.4) Comment Review of Relevant I have reviewed the following items marita (where applicable) has been applied. Medications: Current Medications Medications (Trade) Dose Ordered Sig/Nayla Route PRN Reason Start Time Stop Time Status Last Admin Dose Admin Lactobacillus Rhamnosus (Culturelle) 1 cap BID PO 05/07/21 21:00 05/08/21 08:03 Fentanyl Citrate (Fentanyl 2ml Vial) 50 mcg PRN Q2HR PRN IVP PAIN 05/08/21 01:00 05/08/21 08:09 Justifications for Admission Other Justification ROBYN MTZ MD May 08, 2021 11:54
[2021-05-08 15:00] VITALS: BP 126/55
[2021-05-08] MEDS ORDERED: traMADol 50 MG TABLET PO PRN (18:15)
--- NOTE | 2021-05-08 18:17 | NUR ---
At approx 1430 pt began to scream in his room. Nurses Rula and Gwen entered room and noted pt was very confused, saying that he did not know where he was at, I was paged to the room and he said that he did not know who we were and became scared not wanting us to close to him. He cont to say he wanted to know what was going on and that he was not in the hospital. This nurse spoke to him calmly to try and de-escalate his behavior. I asked that other nurses to step out to reduce stimuli. I cont to reorientate and answered all questions he was concerned about. He said he started to recognize me and was trusting me. He was given Zyprexa 5mg. He then would become scared again not knowing where he was. This continued for about 45minutes. Dr. Amaya was paged and order to obtain ammonia level. Due to pt's behavior and scared of others, I was able to obtain lab and send it to the lab at 1520, results came back at 34, normal. was called and notified of behaviors. She returned and pt has been calm since her arrival. Pt home meds were just now transferred over to [facility].
[2021-05-08 19:00] VITALS: BP 151/94
[2021-05-08] MEDS ORDERED: rOPINIRole 1 MG TABLET. PO SCH (21:00)
[2021-05-08] MEDS: cefTRIAXone IV Push 1 GM VIAL. IVP SCH (22:03)
[2021-05-08] MEDS: GABAPENTIN 300 MG CAPSULE. PO SCH (22:05)
[2021-05-08] MEDS: rifAXIMin 550 MG TABLET PO SCH (22:07)
[2021-05-08 23:00] VITALS: BP 149/83
[2021-05-09 07:00] VITALS: BP 145/90
[2021-05-09] MEDS ORDERED: NON FORMULARY ITEM (Meloxicam 1 TAB) PO SCH (09:00)
[2021-05-09] MEDS ORDERED: POTASSIUM CHLORIDE 10 MEQ TABLET.ER. PO SCH (09:00)
[2021-05-09] MEDS ORDERED: FUROSEMIDE 20 MG TABLET PO SCH ×2 (09:00→18:15)
[2021-05-09] MEDS ORDERED: SPIRONOLACTONE 25 MG TABLET PO SCH (09:00)
[2021-05-09] MEDS ORDERED: DULoxetine HCL 30 MG CAPSULE.DR PO SCH (09:00)
[2021-05-09] MEDS ORDERED: MAGNESIUM OXIDE 400 MG TABLET PO SCH (09:00)
[2021-05-09] MEDS: DOXYCYCLINE HYCLATE 100 MG in IV DEXTROSE 5% 100ML 100 ML IV SCH (10:10)
[2021-05-09] MEDS: GABAPENTIN 300 MG CAPSULE. PO SCH ×2 (10:14→14:24)
[2021-05-09] MEDS: LACTULOSE 20 GM/30 ML SOLUTION. PO SCH (10:14)
[2021-05-09] MEDS: THIAMINE 100 MG TABLET. PO SCH (10:15)
[2021-05-09] MEDS: rifAXIMin 550 MG TABLET PO SCH (10:17)
[2021-05-09] MEDS: LACTOBACILLUS RHAMNOSUS GG 1 CAPSULE. PO SCH (10:18)
[2021-05-09] MEDS: FOLIC ACID 1 MG TABLET. PO SCH (10:18)
[2021-05-09 11:00] VITALS: BP 144/91
--- NOTE | 2021-05-09 11:46 | PDOC ---
[employer] PROGRESS NOTE Date of Service DOS: DATE: 05/09/21 TIME: 11:44 Chief Complaint Chief Complaint A/P: Acute encephalopathy - likely decompensated alcoholic cirrhosis Alcoholic cirrhosis of the liver - states he sees Dr. Nallely Geller at [facility] for his liver disease, takes diuretics, had a recent outpatient visit. Has been stable and sober per Intractable back pain - likely due to L4 compression fracture. No noted fall, but patient and his significant other are not reliable historians L4 fracture - uncertain acuity, but seems this happened within the past 3 weeks. Right hip pain - good ROM Left foot cellulitis - iv rocephin and doxy Left 2nd toe ulcer - likely source of infection, antibiotics, wound care Thrombocytopenia - likely related to liver disease, will monitor FEN - NPO PPX - lovenox FULL CODE Dispo - inpatient History of Present Illness History of Present Illness Mr Gustafson is a 61-year-old male with PMHx alcoholic cirrhosis of the liver presents to the emergency department via EMS accompanied by his for confusion and back pain. EMS told ED staff patient has been "speaking in tongues" and not answering questions appropriately History is given by bedside and very normal air fashion. She notes patient has had back pain for the past 3 weeks and saw her primary care physician Dr. Schaffer had an x-ray and was told it was "normal". He then did a job where there was heavy lifting involved and since then his back pain is gotten worse his notes no falls and when asked if she is with him 24/7 she answers no but she knows he has not fallen. Patient is very unsteady on his feet. He is very disheveled with debridement and feces caked in multiple locations his notes he took a hot bath earlier today and this did not help his pain. When ask ed about the swelling in his left leg and ulcer on his toe patient's notes that he sees a liver doctor at [facility] and has been taking furosemide and that he stopped drinking over a year ago. When asked how long his left foot has been red she notes she did not notice that. Patient is unable to give any other history. Spouse notes that he gets most of his care at [facility] in the [facility] and she does not know much else about his history and tells me I should just look at his record. During examination he will frequently shout out "pain" and "back". He is following some commands and moving all four extermities but due to patients speech, unable to obtain an HPI. CT lumbar spine with L4 endplate fracture, CT neck with no acute findings degenerative joint disease C2-C5. Labs with WBC 7.8, Hb 12.7, platelets 136, NA 134, K3.7, BUN 6, CR 1, alkaline phosphatase 179, albumin 3.3, ammonia 46, high-sensitivity troponin 8, lactic acid 1.9, urine drug screen negative, UA bland K down to 2.9 Albumin 2.7 Hb 11.9 platelets 112. Mental status and pain improved slightly today. MRI per IR. 05/08/2021 No acute events overnight. Patient seen and examined bedside. Redness and pain has improved. Continue with IV antibiotics for 1 more day and transition to p.o. antibiotics tomorrow. Patient will need close follow-up with wound care clinic and podiatry for left second digit hammertoe. 05/09/2021 No acute events overnight. Patient seen examined bedside today with no confusion and is alert awake oriented x4.. Still has some back pain. Left foot redness has essentially resolved. Patient had an acute agitative episodes of confusion yesterday and required Zyprexa. Patient did not have a bowel movement since 05 May. He is only on lactulose daily. We will increase his lactulose to 3 times daily until he 1-2 bowel movements per day. Anticipate discharge once patient has a bowel movement and has no agitated episodes. Patient's chart, labs, images were reviewed and discussed with RN Vitals/I&O Vitals/I&O: Vital Signs Date Time Temp Pulse Resp B/P (MAP) Pulse Ox O2 Delivery O2 Flow Rate FiO2 05/09/21 07:00 97.9 91 18 145/90 (108) 93 Room Air 97.9 I & O 05/08/21 05/08/21 05/09/21 15:00 23:00 07:00 Intake Total 100 ml 300 ml Output Total 3150 ml Balance 100 ml -3150 ml 300 ml Physical Exam General: Alert, Cooperative, moderate distress Abdomen: Normal bowel sounds, Soft, No tenderness, No hepatosplenomegaly, No masses Extremities: No clubbing, No cyanosis, Normal pulses Skin: Other (left 2nd toe ulcer and redness, warmth to midfoot on left, swollen) Labs Labs: Laboratory Tests Test 05/08/21 15:20 Ammonia 34 mcmol/L (11-34) Comment Review of Relevant I have reviewed the following items marita (where applicable) has been applied. Medications: Current Medications Medications (Trade) Dose Ordered Sig/Nayla Route PRN Reason Start Time Stop Time Status Last Admin Dose Admin Furosemide (Lasix) 60 mg DAILY PO 05/09/21 09:00 05/09/21 10:17 Gabapentin (Neurontin) 900 mg TID PO 05/08/21 21:00 05/09/21 10:14 Potassium Chloride (Klor-Con) 20 meq DAILY PO 05/09/21 09:00 05/09/21 10:15 Rifaximin (Xifaxan) 550 mg BID PO 05/08/21 21:00 05/09/21 10:17 Duloxetine HCl (Cymbalta) 60 mg DAILY PO 05/09/21 09:00 05/09/21 10:16 Magnesium Oxide (Magnesium Oxide) 400 mg DAILY PO 05/09/21 09:00 05/09/21 10:15 Ropinirole HCl (Requip) 3 mg HS PO 05/08/21 21:00 05/08/21 22:06 Spironolactone (Aldactone) 50 mg DAILY PO 05/09/21 09:00 05/09/21 10:16 Justifications for Admission Other Justification ROBYN MTZ MD May 09, 2021 11:46
[2021-05-09] MEDS ORDERED: LACTULOSE 20 GM/30 ML SOLUTION. PO SCH (12:00)
[2021-05-09 15:00] VITALS: BP 154/96
[2021-05-09] MEDS ORDERED: LACT20SO PO (16:44)
[2021-05-09] MEDS ORDERED: THIA100T22 PO (16:44)
--- NOTE | 2021-05-09 16:48 | DISCH ---
DISCHARGE INSTRUCTIONS Condition on Discharge Condition on Discharge: Stable Activity After Discharge Activity Instructions for Disc: Activity as tolerated Lifting Instructions after Dis: Do not lift >10 pounds Driving Instructions after Dis: Do not drive today Weight Bearing Status after Di: As tolerated Diet after Discharge Diet after Discharge: Diabetic No Calorie Level Follow-Up Follow up with: PCP within 2 weeks of discharge with IR consult Follow Up With: GI as needed or as scheduled ROBYN MTZ MD May 09, 2021 16:48
--- NOTE | 2021-05-09 18:47 | NUR ---
Discharge Note: ROBYN [place] Discharge instructions and discharge home medications reviewed with Patient and a copy given. All questions have been answered and understanding verbalized. The following instructions and handouts were given: Diet, activity, medication list and follow up instructions provided to patient. Patient and spouse verbalized understanding of directions. Discontinued lines and drains: Peripheral IV discontinued and catheter intact. Patient discharged to Home or Self Care with Spouse via Wheelchair
[2021-05-12] MEDS ORDERED: OXYC5CAP PO (15:35)
== END 2021-05-09 17:50 | disposition home or self-care (01) | DRG 433 ==
LOC: ER 17:10 → 4 NORTH 20:10
PROVIDERS: ADMIT Internal Medicine; ATTEND Internal Medicine
DX: K70.30 Alcoholic cirrhosis of liver without ascites (principal); G93.40 Encephalopathy, unspecified; L03.116 Cellulitis of left lower limb; M48.56XA Collapsed vertebra, not elsewhere classified, lumbar region, initial encounter for fracture; D69.59 Other secondary thrombocytopenia; L97.529 Non-pressure chronic ulcer of other part of left foot with unspecified severity
CPT/HCPCS: 36415; 70450; 71045; 72125; 72131; 72148; 73502; 80048; 80053; 80307; 81001; 82140; 83605; 83735; 84484; 85025; 85610; 87040; 87426; 93005; 96372; 96374; 96375; G0480; J0696; J1885; J2360; J3010; J3475; J3480; J3490; J7060; U0003; U0005; 99285-25; G0378